=== PATIENT | female | born 1980 | race Caucasian/White ===

== ENCOUNTER 2017-06-26 15:46 | Emergency (ER) | payer BC ==
[2017-06-26 16:56] VITALS: BP 130/84
--- NOTE | 2017-06-26 17:30 | UC ---
Respiratory Complaint HPI - HPI Summary HPI Summary: Pt c/o of cough, PND, nasal congestion X 2 weeks. - History of Current Complaint Chief Complaint: UCRespiratory Stated Complaint: COLD SYMPTOMS/COUGH Time Seen by Provider: 06/26/17 16:58 Hx Obtained From: Patient Hx Last Menstrual Period: 06/07/17 ?: No Onset/Duration: Gradual Onset, Lasting Days Timing: Constant Severity Initially: Mild Severity Currently: Mild Character: Cough: Nonproductive Aggravating Factors: Recumbent Position Associated Signs And Symptoms: Positive: URI - Risk Factors Pulmonary Embolism Risk Factors: Negative Cardiac Risk Factors: Negative Pseudomonas Risk Factors: Negative Tuberculosis Risk Factors: Negative - Allergies/Home Medications Allergies/Adverse Reactions: Allergies Allergy/AdvReac Type Severity Reaction Status Date / Time environmnetal allergies Allergy Congestion Uncoded 06/26/17 16:49 Home Medications: Home Medications Esomeprazole Magnesium [Nexium 24Hr] 20 mg PO DAILY 06/26/17 [History Confirmed 06/26/17] PMH/Surg Hx/FS Hx/Imm Hx Previously Healthy: Yes - Surgical History Surgical History: Yes Surgery Procedure, Year, and Place: gallbladder 2006. tubal ligation. devianted septum - Family History Known Family History: Positive: Cardiac Disease - Social History Occupation: Employed Full-time Lives: With Family Alcohol Use: None Substance Use Type: None Smoking Status (MU): Never Smoked Tobacco Have You Smoked in the Last Year: No - Immunization History Most Recent Influenza Vaccination: FALL 2016 Review of Systems Constitutional: Negative Skin: Negative Eyes: Negative ENT: Sinus Congestion, Other - PND Respiratory: Cough Cardiovascular: Negative Gastrointestinal: Negative Genitourinary: Negative Motor: Negative Neurovascular: Negative Musculoskeletal: Negative Neurological: Negative Psychological: Negative Is Patient Immunocompromised?: No All Other Systems Reviewed And Are Negative: Yes Physical Exam Triage Information Reviewed: Yes Appearance: Well-Appearing Vital Signs: Initial Vital Signs Temp 97.5 F 06/26/17 16:50 Pulse 93 06/26/17 16:50 Resp 20 06/26/17 16:50 BP 130/84 06/26/17 16:50 Pulse Ox 100 06/26/17 16:50 Vital Signs Reviewed: Yes Eye Exam: Normal ENT Exam: Other ENT: Positive: Nasal congestion, Sinus tenderness Dental Exam: Normal Neck exam: Normal Respiratory Exam: Normal Cardiovascular Exam: Normal Musculoskeletal Exam: Normal Neurological Exam: Normal Psychological Exam: Normal Skin Exam: Normal UC Diagnostic Evaluation - Laboratory O2 Sat by Pulse Oximetry: 100 Respiratory Course/Dx - Differential Dx/Diagnosis Differential Diagnosis/HQI/PQRI: Bronchitis, Sinusitis, Other - cough Provider Diagnoses: viral syndrome. cough Discharge - Discharge Plan Condition: Stable Disposition: HOME Prescriptions: Benzonatate CAP* [Tessalon 100 MG CAP*] 100 mg PO Q8H PRN #30 cap PRN Reason: Cough predniSONE TAB* [Deltasone TAB*] 30 mg PO DAILY #9 tab Pseudoephedrine TAB* [Sudafed TAB*] 60 mg PO Q12H PRN #10 tab PRN Reason: Congestion Patient Education Materials: Acute Cough (ED) Referrals: Glenys Metcalf MD [Primary Care Provider] - If Needed
== END 2017-06-26 17:36 | disposition home or self-care (01) ==
LOC: UCCORT 15:46
DX: B34.9 Viral infection, unspecified (principal); R05 Cough
CPT/HCPCS: 99212; G0463

== ENCOUNTER 2018-06-23 08:55 | Emergency (ER) | payer BC ==
[2018-06-23 09:07] VITALS: BP 132/82
--- NOTE | 2018-06-23 09:40 | ED ---
Throat Pain/Nasal Congestion - HPI Summary HPI Summary: 38 yr old female with the complaint of bilateral ear pain, sinus pressure, post nasal drip, coughing. Onset of her symptoms was about a week ago. The patient patient has been having symptoms that are 6/10 intensity with pain location in ears and her sinuses. She has a cough productive of sputum. No SOB or CP. No fever. Nothing makes symptoms better or worse. - History of Current Complaint Chief Complaint: UCRespiratory Time Seen by Provider: 06/23/18 09:29 - Allergies/Home Medications Allergies/Adverse Reactions: Allergies Allergy/AdvReac Type Severity Reaction Status Date / Time environmnetal allergies Allergy Congestion Uncoded 06/23/18 09:02 Home Medications: Home Medications Cyanocobalamin INJ * [Vitamin B12 INJ *] 1,000 mcg IM MONTHLY 06/23/18 [History Confirmed 06/23/18] Omeprazole CAP* [Prilosec CAP* 20 MG] 20 mg PO DAILY PRN 06/23/18 [History Confirmed 06/23/18] PMH/Surg Hx/FS Hx/Imm Hx Endocrine/Hematology History: Reports: Hx Thyroid Disease - hypo - Surgical History Surgery Procedure, Year, and Place: gallbladder 2006. tubal ligation. devianted septum Infectious Disease History: No Infectious Disease History: Denies: Traveled Outside the [place] in Last 30 Days - Family History Known Family History: Positive: None, Cardiac Disease - Social History Alcohol Use: None Substance Use Type: Reports: None Smoking Status (MU): Never Smoked Tobacco Have You Smoked in the Last Year: No Review of Systems Constitutional: Negative Positive: Sore Throat, Ear Ache, Nasal Discharge Positive: Cough All Other Systems Reviewed And Are Negative: Yes Physical Exam Triage Information Reviewed: Yes Vital Signs On Initial Exam: Initial Vitals Temp Pulse Resp BP Pulse Ox 97.5 F 83 16 132/82 99 06/23/18 09:04 06/23/18 09:04 06/23/18 09:04 06/23/18 09:04 06/23/18 09:04 Vital Signs Reviewed: Yes Appearance: Positive: Well-Appearing, No Pain Distress Skin: Positive: Warm, Skin Color Reflects Adequate Perfusion Eyes: Positive: EOMI ENT: Positive: Nasal congestion, Nasal drainage, TM red - bialteral right greater than left with effusion on right side., Sinus tenderness. Negative: Muffled voice, Hoarse voice Neck: Positive: Nontender Respiratory/Lung Sounds: Positive: Clear to Auscultation, Breath Sounds Present Cardiovascular: Positive: RRR. Negative: Murmur Abdomen Description: Negative: Distended Musculoskeletal: Positive: Strength/ROM Intact Neurological: Positive: Sensory/Motor Intact, Alert, Oriented to Person Place, Time, CN Intact II-III Psychiatric: Positive: Normal - Michelle Coma Scale Best Eye Response: 4 - Spontaneous Best Motor Response: 6 - Obeys Commands Best Verbal Response: 5 - Oriented Coma Scale Total: 15 Diagnostics - Vital Signs Vital Signs Temp Pulse Resp BP Pulse Ox 06/23/18 09:04 97.5 F 83 16 132/82 99 - Laboratory Lab Statement: Any lab studies that have been ordered have been reviewed, and results considered in the medical decision making process. EENT Course/Dx - Course Course Of Treatment: 38 yr old female with sinusitis, and otitis media. Rx with Cefdinir - Diagnoses Provider Diagnoses: Sinusitis, Otitis media Discharge - Sign-Out/Discharge Documenting (check all that apply): Patient Departure All imaging exams completed and their final reports reviewed: No Studies - Discharge Plan Condition: Good Disposition: HOME Prescriptions: Cefdinir [Cefdinir 300 MG CAP] 300 mg PO BID #20 capsule Patient Education Materials: Sinusitis (ED), Ear Infection (ED) Referrals: Glenys Metcalf MD [Primary Care Provider] - 4 Days - Billing Disposition and Condition Condition: GOOD Disposition: Home
== END 2018-06-23 09:48 | disposition home or self-care (01) ==
LOC: UCCORT 08:55
DX: J32.9 Chronic sinusitis, unspecified (principal); H66.90 Otitis media, unspecified, unspecified ear
CPT/HCPCS: 99212; G0463

== ENCOUNTER 2018-07-19 13:10 | Emergency (ER) | payer BC ==
--- NOTE | 2018-07-19 14:08 | UC ---
Respiratory Complaint HPI - HPI Summary HPI Summary: 38 yo female presents with sinus pain/pressure/congestion, post nasal drip, and productive cough for the last month. She tells me that she was seen about a month ago and dx'd with a sinus infection and treated with cefdinir for 10 days. Her symptoms improved, but did not go away and have since returned. She is concerned she has pneumonia. She denies fever, chills, sore throat, SOB, chest pain. - History of Current Complaint Stated Complaint: CHEST CONGESTION,COUGH Time Seen by Provider: 07/19/18 14:08 Hx Obtained From: Patient Hx Last Menstrual Period: 06/22/18 Onset/Duration: Gradual Onset Severity Initially: Moderate Severity Currently: Moderate Pain Intensity: 4 Pain Scale Used: 0-10 Numeric - Allergies/Home Medications Allergies/Adverse Reactions: Allergies Allergy/AdvReac Type Severity Reaction Status Date / Time environmnetal allergies Allergy Congestion Uncoded 07/19/18 14:07 Home Medications: Home Medications Cholecalciferol TAB* [Vitamin D TAB*] 5,000 units PO WEEKLY 07/19/18 [History Confirmed 07/19/18] PMH/Surg Hx/FS Hx/Imm Hx Endocrine History: Hypothyroidism GI/ History: Gastroesophageal Reflux - Surgical History Surgical History: Yes Surgery Procedure, Year, and Place: gallbladder 2006. tubal ligation. devianted septum - Family History Known Family History: Positive: Cardiac Disease - Social History Occupation: Employed Full-time Lives: With Family Alcohol Use: None Substance Use Type: None Smoking Status (MU): Never Smoked Tobacco Have You Smoked in the Last Year: No - Immunization History Most Recent Influenza Vaccination: FALL 2016 Review of Systems All Other Systems Reviewed And Are Negative: Yes Constitutional: Positive: Negative Skin: Positive: Negative Eyes: Positive: Negative ENT: Positive: Nasal Discharge, Sinus Congestion, Sinus Pain/Tenderness Respiratory: Positive: Cough Cardiovascular: Positive: Negative Gastrointestinal: Positive: Negative Neurovascular: Positive: Negative Neurological: Positive: Negative Psychological: Positive: Negative Physical Exam - Summary Physical Exam Summary: GENERAL: NAD. WDWN. No pain distress. SKIN: No rashes, sores, lesions, or open wounds. HEENT: Head: AT/NC Eyes: EOM intact. Conjunctiva clear without inflammation or discharge. Ears: Hearing grossly normal. TMs intact, no bulging, erythema, or edema. Nose: Nasal mucosa mildly swollen and erythematous with yellow discharge. TTP maxillary and frontal sinus. Positive post nasal drip Throat: Posterior oropharynx without exudates, erythema, or tonsillar enlargement. Uvula midline. NECK: Supple. Nontender. No lymphadenopathy. CHEST: CTAB. No r/r/w. No accessory muscle use. Breathing comfortably and in no distress. CV: RRR. Without m/r/g. Pulses intact. NEURO: Alert. PSYCH: Age appropriate behavior. Triage Information Reviewed: Yes Vital Signs: Vital Signs: Temp Pulse Resp BP Pulse Ox 97.6 F 101 17 138/83 98 07/19/18 14:06 07/19/18 14:06 07/19/18 14:06 07/19/18 14:06 07/19/18 14:06 Respiratory Course/Dx - Course Course Of Treatment: CXR: IMPRESSION: No radiographic evidence of acute cardiopulmonary disease. Suspect sinusitis. Given her recent anbx use - will rx for augmentin. - Differential Dx/Diagnosis Provider Diagnosis: Sinusitis Discharge - Sign-Out/Discharge Documenting (check all that apply): Patient Departure All imaging exams completed and their final reports reviewed: Yes - Discharge Plan Condition: Stable Disposition: HOME Prescriptions: Amoxicillin/Clavulanate TAB* [Augmentin TAB 875*] 875 mg PO BID #20 tab Patient Education Materials: Sinusitis (ED) Referrals: Glenys Metcalf MD [Primary Care Provider] - Additional Instructions: If you develop a fever, shortness of breath, chest pain, new or worsening symptoms - please call your PCP or go to the ED. Your blood pressure was high at todays visit. Please see your primary provider within 4 weeks for recheck and re-evaluation. Your chest x-ray today was normal. - Billing Disposition and Condition Condition: STABLE Disposition: Home
[2018-07-19 14:09] VITALS: BP 138/83
== END 2018-07-19 14:59 | disposition home or self-care (01) ==
LOC: UCCORT 13:10
DX: J32.9 Chronic sinusitis, unspecified (principal)
CPT/HCPCS: 71046; 99212; G0463

== ENCOUNTER 2019-03-28 16:39 | Emergency (ER) | payer BC ==
[2019-03-28 17:30] VITALS: BP 131/77
--- NOTE | 2019-03-28 18:17 | UC ---
Lower Extremity/Ankle HPI - HPI Summary HPI Summary: 39 yo female stepped on lacrosse ball this AM inverting her left ankle initially not too painful now severe pain with wt bearing remote his of left ankle sprain - History of Current Complaint Chief Complaint: UCLowerExtremity Stated Complaint: LT ANKLE INJURY Time Seen by Provider: 03/28/19 17:17 Hx Obtained From: Patient Hx Last Menstrual Period: 03/11/19; tubal Onset/Duration: Sudden Onset, Lasting Hours Severity Initially: Mild Severity Currently: Moderate Pain Intensity: 4 Pain Scale Used: 0-10 Numeric Aggravating Factor(s): Standing, Ambulation Alleviating Factor(s): Rest, Elevation Able to Bear Weight: Yes Feet (Multiple View): 1 - tender and swollen 2 - tender and swollen - Allergies/Home Medications Allergies/Adverse Reactions: Allergies Allergy/AdvReac Type Severity Reaction Status Date / Time environmnetal allergies Allergy Congestion Uncoded 03/28/19 17:24 Home Medications: Home Medications FLUoxetine CAP* [PROzac CAP*] 30 mg PO QPM 03/28/19 [History Confirmed 03/28/19] Levothyroxine TAB* [Synthroid TAB*] 88 mcg PO DAILY 03/28/19 [History Confirmed 03/28/19] PMH/Surg Hx/FS Hx/Imm Hx Previously Healthy: Yes Endocrine History: Hypothyroidism Psychological History: Depression - Surgical History Surgical History: Yes Surgery Procedure, Year, and Place: gallbladder 2006. tubal ligation. devianted septum. 3x ovarian cyst, 03/09/19 - Family History Known Family History: Positive: None, Cardiac Disease - Social History Alcohol Use: None Substance Use Type: None Smoking Status (MU): Never Smoked Tobacco Have You Smoked in the Last Year: No - Immunization History Most Recent Influenza Vaccination: FALL 2016 Review of Systems All Other Systems Reviewed And Are Negative: Yes Constitutional: Positive: Negative Skin: Positive: Negative Eyes: Positive: Negative ENT: Positive: Negative Respiratory: Positive: Negative Cardiovascular: Positive: Negative Gastrointestinal: Positive: Negative Genitourinary: Positive: Negative Motor: Positive: Negative Neurovascular: Positive: Negative Musculoskeletal: Positive: Arthralgia - left ankle Neurological: Positive: Negative Psychological: Positive: Negative Physical Exam Triage Information Reviewed: Yes Appearance: Well-Appearing, No Pain Distress, Well-Nourished Vital Signs: Initial Vital Signs Temp 97.7 F 03/28/19 17:24 Pulse 76 03/28/19 17:24 Resp 16 03/28/19 17:24 BP 131/77 03/28/19 17:24 Pulse Ox 100 03/28/19 17:24 Vital Signs Reviewed: Yes Eyes: Positive: Conjunctiva Clear ENT: Positive: Hearing grossly normal. Negative: Nasal congestion, Nasal drainage, Trismus, Hoarse voice Neck: Positive: Supple Respiratory: Positive: Lungs clear, Normal breath sounds, No respiratory distress Cardiovascular: Positive: RRR, No Murmur Musculoskeletal: Positive: ROM Intact, Edema @ - left LM and lat foot Neurological: Positive: Alert Psychological Exam: Normal Skin Exam: Normal Diagnostics - Radiology No standard instances Radiology Interpretation Completed By: Radiologist Summary of Radiographic Findings: left foot and ankle- STS but no fx Lower Extremity Course/Dx - Differential Dx/Diagnosis Provider Diagnosis: Sprain of left foot, Left ankle sprain Discharge ED - Sign-Out/Discharge Documenting (check all that apply): Patient Departure All imaging exams completed and their final reports reviewed: Yes - Discharge Plan Condition: Stable Disposition: HOME Patient Education Materials: Ankle Sprain (DC), Walking Boot (ED) Forms: *Work Release Referrals: Vaibhav Friedman MD [Medical Doctor] - If Needed Additional Instructions: rest elevate ice continue ibuprofen - Billing Disposition and Condition Condition: STABLE Disposition: Home
== END 2019-03-28 18:30 | disposition home or self-care (01) ==
LOC: UCCORT 16:39
DX: S93.402A Sprain of unspecified ligament of left ankle, initial encounter (principal); S93.602A Unspecified sprain of left foot, initial encounter; X50.1XXA Overexertion from prolonged static or awkward postures, initial encounter; Y92.9 Unspecified place or not applicable; E03.9 Hypothyroidism, unspecified; F32.9 Major depressive disorder, single episode, unspecified
CPT/HCPCS: 99212; G0463

== ENCOUNTER 2019-07-21 15:12 | Emergency (ER) | payer BC ==
[2019-07-21 17:15] VITALS: BP 137/82
--- NOTE | 2019-07-21 18:20 | UC ---
Psychiatric Complaint HPI - HPI Summary HPI Summary: 39 year old female with PMH + for hypothyroidism presents iwth increased anxiety x several months. changing PCPs currently. was placed on fluoxetine with ++ benefit, but intermittently will have "panic attacks" at night- Patient feels flushed, increased heart rate, shortness of breath, shaky, drive heaves. Will last for about 10-15 minutes, then resolve with lying down. Patient states symptoms have been worse due to recent of grandparent and father in law. asking for medication to help her calm down. no chest pain, no jaw pain. symptoms only happen at home, no problems at work, no problems with sleeping. also needs refill on levo- has been taking 88 mcg for "years", stable. Recent TSH drawn ~ 2 months ago, asked drs office and was told was normal. - History Of Current Complaint Chief Complaint: UCGeneralIllness Stated Complaint: PERSCRIPTION REFIL Time Seen by Provider: 07/21/19 17:32 Hx Obtained From: Patient Hx Last Menstrual Period: 07/12/19 ?: No Severity Initially: Moderate Severity Currently: Moderate Character: Fearful, Anxious Aggravating Factor(s): Recent Stress - recent Alleviating Factor(s): Nothing Associated Signs And Symptoms: Social Withdrawal - Allergies/Home Medications Allergies/Adverse Reactions: Allergies Allergy/AdvReac Type Severity Reaction Status Date / Time environmnetal allergies Allergy Congestion Uncoded 07/21/19 17:06 PMH/Surg Hx/FS Hx/Imm Hx Previously Healthy: Yes - Surgical History Surgical History: Yes Surgery Procedure, Year, and Place: gallbladder 2006. tubal ligation. devianted septum. ovarian cyst,D&C 03/09/19 - Family History Known Family History: Positive: None, Cardiac Disease - Social History Occupation: Employed Full-time Alcohol Use: None Substance Use Type: None Smoking Status (MU): Never Smoked Tobacco Have You Smoked in the Last Year: No - Immunization History Most Recent Influenza Vaccination: FALL 2016 Review of Systems All Other Systems Reviewed And Are Negative: Yes Constitutional: Negative: Fever, Chills, Fatigue ENT: Negative: Ear Ache, Nasal Discharge Respiratory: Negative: Cough Cardiovascular: Positive: Palpitations. Negative: Chest Pain Musculoskeletal: Positive: Negative Neurological: Positive: Negative Psychological: Positive: Anxious Is Patient Immunocompromised?: No Physical Exam Triage Information Reviewed: Yes Appearance: Well-Appearing, No Pain Distress, Well-Nourished Vital Signs: Initial Vital Signs Temp 97.9 F 07/21/19 17:07 Pulse 81 07/21/19 17:07 Resp 18 07/21/19 17:07 BP 137/82 07/21/19 17:07 Pulse Ox 99 07/21/19 17:07 Vital Signs Reviewed: Yes Eyes: Positive: Conjunctiva Clear ENT: Positive: Hearing grossly normal Respiratory: Positive: Chest non-tender, Lungs clear, Normal breath sounds, No respiratory distress, No accessory muscle use. Negative: Respiratory distress, Crackles, Rhonchi, Stridor, Wheezing Cardiovascular: Positive: RRR, No Murmur, Pulses Normal Musculoskeletal Exam: Normal Neurological Exam: Normal Psychological Exam: Normal Skin: Positive: Other - flushing over chest when patient becomes anxious with speaking, urticarial type pattern extending to neck. Psych Complaint Course/Dx - Course Course Of Treatment: Anxiety, possible related to menopause, thyroid. Discussed with patient that she needed close follow up with her primary for changes in her medication, further work up with possible mood modifications to help with stress. Patient denies SI/ HI. - Metoprolol as needed every 12 hours for anxiety, 25mg orally. First time take while at home and resting to ensure no side effects - Levothyroxine prescription sent - Blood work drawn today for TSH- results will return within 24 hours - Follow up with primary physician for further work up, evaluation and possible medication adjustments - Differential Dx/Diagnosis Differential Diagnosis/HQI/PQRI: Anxiety, Depression, Homicidal Gesture, Schizophrenia, Suicide Attempt, Suicidal Ideation, Suicidal Gesture Provider Diagnosis: Anxiety Discharge ED - Sign-Out/Discharge Documenting (check all that apply): Patient Departure All imaging exams completed and their final reports reviewed: No Studies - Discharge Plan Condition: Good Disposition: HOME Prescriptions: Levothyroxine TAB* [Synthroid 88 MCG TAB*] 88 mcg PO 0600 #20 tab Metoprolol Tartrate 0.5 tab PO BID PRN #20 tablet PRN Reason: Anxiety Patient Education Materials: Anxiety (ED) Referrals: [facility] [Outside] No Primary Care Phys,NOPCP [Primary Care Provider] - Additional Instructions: - Metoprolol as needed every 12 hours for anxiety, 25mg orally. First time take while at home and resting to ensure no side effects - Levothyroxine prescription sent - Blood work drawn today for TSH- results will return within 24 hours - Follow up with primary physician for further work up, evaluation and possible medication adjustments - Billing Disposition and Condition Condition: GOOD Disposition: Home
--- NOTE | 2019-07-24 07:30 | UC ---
- Progress Note Progress Note: Reviewed TSH, done due to refill of levothyroxine. Please let her know that TSH is 1.78--well controlled with current dose of medication. Course/Dx - Diagnoses Provider Diagnoses: Anxiety Discharge ED - Sign-Out/Discharge Documenting (check all that apply): Post-Discharge Follow Up All imaging exams completed and their final reports reviewed: No Studies - Discharge Plan Condition: Good Disposition: HOME Prescriptions: Levothyroxine TAB* [Synthroid 88 MCG TAB*] 88 mcg PO 0600 #20 tab Metoprolol Tartrate 0.5 tab PO BID PRN #20 tablet PRN Reason: Anxiety Patient Education Materials: Anxiety (ED) Referrals: [facility] [Outside] No Primary Care Phys,NOPCP [Primary Care Provider] - Additional Instructions: - Metoprolol as needed every 12 hours for anxiety, 25mg orally. First time take while at home and resting to ensure no side effects - Levothyroxine prescription sent - Blood work drawn today for TSH- results will return within 24 hours - Follow up with primary physician for further work up, evaluation and possible medication adjustments - Billing Disposition and Condition Condition: GOOD Disposition: Home
== END 2019-07-21 18:19 | disposition home or self-care (01) ==
LOC: UCCORT 15:12
DX: F41.9 Anxiety disorder, unspecified (principal); R00.2 Palpitations; Z91.09 Other allergy status, other than to drugs and biological substances
CPT/HCPCS: 36415; 84443; 99212; G0463